=== PATIENT | female | born 2005 | race Caucasian/White ===

== ENCOUNTER 2024-01-03 06:33 | Outpatient (REF) | payer OTHER, SELFPAY | END 2024-01-03 06:34 | disposition home or self-care (01) | LOC: HO.UMASIMG 06:33 | PROVIDERS: Visit Provider Nurse Practitioner Women's Health | DX: Z13.89 Encounter for screening for other disorder (principal) ==

== ENCOUNTER 2024-01-10 06:34 | Outpatient (REF) | payer OTHER, SELFPAY ==
--- NOTE | ~2024-01-10 | US_ITS ---
EXAMINATION: US PELVIS CLINICAL INFORMATION: Check position of IUD, status post insertion 4 weeks ago COMPARISON: None available. TECHNIQUE: Ultrasound of the pelvis is performed using both transabdominal and transvaginal transducers along with Doppler. Transvaginal imaging is performed due to inadequate visualization transabdominally. FINDINGS: Uterus: The uterus is anteverted and measures 7.4 x 3.1 x 4.3 cm. Cervix measured 2.0 cm The double wall endometrial thickness is 0.4 mm. There is IUD in position flow, not completely covering the endometrium The uterus is smooth in contour and has normal myometrial echogenicity. No visible fibroid. Adnexa: Both ovaries are visualized. There is normal color flow to the adnexa. There is no ovarian torsion. There is no pelvic ascites or fluid collection. Right ovary measures 2.7 x 1.7 x 1.8 cm. With a volume of 4.4 mL Left ovary measures 3.6 x 1.5 x 1.9 cm. With a volume of 6.1 mL US/US pelvic and transvaginal IMPRESSION: Shallow position of IUD and need to be advanced Electronically signed by: Guilherme Mcclellan MD 01/11/2024 03:20 PM EDT
== END 2024-01-10 06:35 | disposition home or self-care (01) ==
LOC: HO.UMASIMG 06:34
PROVIDERS: Visit Provider Nurse Practitioner Women's Health
DX: Z30.431 Encounter for routine checking of intrauterine contraceptive device (principal); R10.2 Pelvic and perineal pain
CPT/HCPCS: 76830; 76856

== ENCOUNTER 2025-02-05 07:01 | Outpatient (REF) | payer OTHER, SELFPAY ==
--- NOTE | ~2025-02-05 | US_ITS ---
EXAMINATION: US PELVIS CLINICAL INFORMATION: Dysmenorrhea. IUD. COMPARISON: January 10, 2024. TECHNIQUE: Ultrasound of the pelvis is performed using both transabdominal and transvaginal transducers along with Doppler. Transvaginal imaging is performed due to inadequate visualization transabdominally. FINDINGS: Uterus: The uterus is anteversion flexion position and measures 8 x 3 x 5 cm. Volume: 78 cc. The double wall endometrial thickness is 2 mm. No soft tissue lesions in the myometrium. The cervix is normal. There is an intrauterine contraceptive device within the fundus body of the uterus. Adnexa: The ovaries are identified with the flow on color Doppler interrogation.. Scattered follicles. No gross solid or cystic lesion. No free fluid in the cul-de-sac. Right ovary measures 3 x 2 x 2 cm. Volume: 7 cc. Left ovary measures 4 x 2 x 2 cm. Volume: 8 cc. US/US pelvic and transvaginal IMPRESSION: Intrauterine contraceptive device in satisfactory position. Normal exam. Electronically signed by: Jorge Hutchinson MD 02/05/2025 11:29 AM ED [place]
== END 2025-02-05 07:02 | disposition home or self-care (01) ==
LOC: HO.UMASIMG 07:01
PROVIDERS: Visit Provider Family Medicine
DX: N94.6 Dysmenorrhea, unspecified (principal)
CPT/HCPCS: 76830; 76856

== ENCOUNTER → 2025-02-05 10:27 | Outpatient (BNV) | payer OTHER, SELFPAY | PROVIDERS: Visit Provider Radiology Diagnostic Radiology | DX: N94.6 Dysmenorrhea, unspecified (principal); Z30.431 Encounter for routine checking of intrauterine contraceptive device | CPT/HCPCS: 76830; 76856 ==